=== PATIENT | male | born 1995 | race Caucasian/White ===

== ENCOUNTER 2016-04-29 01:27 | Emergency (ER) | payer SELFPAY ==
[~2016-04-29] VITALS: Ht 162.6 cm; Wt 56.8 kg
[2016-04-29 01:31] VITALS: Ht 162.6 cm; Wt 56.8 kg
[2016-04-29] MEDS ORDERED: IBUPROFEN 600 MG TAB PO ONE (03:30)
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
--- NOTE | 2016-04-29 04:29 | RADRPT ---
PROCEDURE: Right shoulder. CLINICAL INDICATION: Pain. TECHNIQUE: Three views of the right shoulder. COMPARISON: None. FINDINGS: There is no fracture, dislocation or bone destruction. The joint spaces are within normal limits. Bone mineralization is within normal limits. There is no radiopaque foreign body or abnormal calcif ication. IMPRESSION: Unremarkable right shoulder. .Roosevelt Rivera MD, MD Date Time Electronically viewed and signed by .Roosevelt Rivera MD, on 04/29/2016 04:29 .T/
--- NOTE | 2016-04-29 04:50 | RADRPT ---
PROCEDURE: CT brain without contrast. CLINICAL INDICATION: Injury and pain. TECHNIQUE: CT scan of the brain was performed on a multi-detector high-resolution CT scanner. Co ntiguous axial images were obtained from the skull base to the vertex without intravenous contrast. Coronal and sagittal reformatted images were also obtained. Images were reviewed on the PACS works tation. One or more of the following dose reduction techniques were used: - Automated exposure control. - Adjustment of the mA and/or kV according to patient size. - Use of iterative reconstruction technique. Exam CTD/vol = 39.10 mGy. Total exam DLP = 634.23 mGy-cm. COMPARISON: None. FINDINGS: The ventricles and cortical sulci are within normal limits for patient's age. There are no areas of abnormal attenuation within the brain parenchyma. There is no mass effect or midline shift. There is no intracranial hemorrhage or abnormal extra-axial collection. The calvarium is intact. There is atlanto-occipital assimilation. There is no evidence of fracture. Visualized paranasal sinuses and mastoid air cells are clear. IMPRESSION: No acute intracranial abnormality identified. .Roosevelt Rivera MD, MD Date Time Electronically viewed and signed by .Roosevelt Rivera MD, MD on 04/29/2016 04:50 .T/
--- NOTE | 2016-04-29 04:54 | RADRPT ---
PROCEDURE: CT Cervical Spine without contrast. CLINICAL INDICATION: Injury and pain. TECHNIQUE: CT scan of the cervical spine was performed on a multi-detector high-resolution CT [facility] [place] Contiguous axial images were obtained without intravenous contrast. Coronal and sagittal ref ormatted images were also obtained. Images were reviewed on the PACS workstation. One or more of the following dose reduction techniques were used: - Automated exposure control. - Adjustment of the mA and/or kV according to patient size. - Use of iterative reconstruction technique. Exam CTD/vol = 22.26 mGy. Total exam DLP = 520.15 mGy-cm. COMPARISON: None. FINDINGS: There is no acute fracture or subluxation. Cervical vertebral body heights and alignment are within normal limits. There is atlanto-occipital assimilation. Intervertebral disk spaces are within nor mal limits. There is no central canal or neural foraminal stenosis. There is no paraspinal mass or collection. IMPRESSION: No acute fracture or subluxation. Atlanto-occipital assimilation. .Roosevelt Rivera MD, Date Time Electronically viewed and signed by .Roosevelt Rivera MD, on 04/29/2016 04:54 .T/
--- NOTE | 2016-04-29 04:57 | RADRPT ---
PROCEDURE: CT Lumbar Spine without contrast. CLINICAL INDICATION: Back pain. TECHNIQUE: CT scan of the lumbar spine [facility] Contiguous axial images were obtained without intravenous contrast. Coronal and sagittal refor matted images were also obtained. Images were reviewed on the PACS workstation. One or more of the following dose reduction techniques were used: - Automated exposure control. - Adjustment of the mA and/or kV according to patient size. - Use of iterative reconstruction technique. Exam CTD/vol = 6.84 mGy. Total exam DLP = 206.23 mGy-cm. COMPARISON: None. FINDINGS: Lumbar vertebral body heights and alignment are within normal limits. There is no acute fracture or subluxation. At T12-L1, the disk height is within normal limits. There is no central canal or neural foraminal s tenosis. At L1-L2, the disk height is within normal limits. There is no central canal or neural foraminal st enosis. At L2-L3, the disk height is within normal limits. There is no central canal or neural foraminal st enosis. At L3-L4, the disk height is within normal limits. There is no central canal or neural foraminal st enosis. At L4-L5, the disk height is within normal limits. There is no central canal or neural foraminal st enosis. At L5-S1, the disk height is within normal limits. There is no central canal or neural foraminal st enosis. There is no paraspinal mass or collection. IMPRESSION: No acute fracture or subluxation. .Roosevelt Rivera MD, Date Time Electronically viewed and signed by .Roosevelt Rivera MD, MD on 04/29/2016 04:57 .T/
[2016-04-29] MEDS ORDERED: IBUP-1542 PO (05:14)
[2016-04-29] MEDS ORDERED: HYDR-906 PO (05:14)
[2016-04-29] MEDS ORDERED: CYCL-319 PO (05:14)
[2016-04-29 05:21] LABS: URINE BLOOD (Dip) POC Trace-intact (NEGATIVE)
[2016-04-29 05:37] VITALS: BP 112/69; PULSE 99; RESP 20; TEMP 98
== END 2016-04-29 05:39 | disposition home or self-care (01) ==
LOC: FTE 01:27
DX: S39.92XA Unspecified injury of lower back, initial encounter (principal); S16.1XXA Strain of muscle, fascia and tendon at neck level, initial encounter; S06.0X0A Concussion without loss of consciousness, initial encounter; F17.210 Nicotine dependence, cigarettes, uncomplicated; S49.91XA Unspecified injury of right shoulder and upper arm, initial encounter; V49.60XA Unspecified car occupant injured in collision with unspecified motor vehicles in traffic accident, initial encounter
CPT/HCPCS: 70450; 72125; 72131; 81003

== ENCOUNTER 2017-09-21 19:22 | Emergency (ER) | END 2017-09-21 20:34 | disposition home or self-care (01) ==